=== PATIENT | male | born 1965 | race Caucasian/White ===

== ENCOUNTER → 2018-04-04 | Outpatient (CLI) | payer MEDICARE | END | disposition home or self-care (01) | LOC: RAH 10:14 | PROVIDERS: ATTEND Orthopaedic Surgery | DX: M19.012 Primary osteoarthritis, left shoulder (principal); M25.712 Osteophyte, left shoulder; M24.012 Loose body in left shoulder | CPT/HCPCS: 73200 ==

== ENCOUNTER 2018-05-21 15:00 | Observation (INO) | payer MEDICARE ==
[~2018-05-21] VITALS: Ht 203.2 cm; Wt 177.5 kg
[2018-07-04 08:27] VITALS: BP 162/74
[2018-07-04 08:27] LABS: BASOPHILS % (AUTO) 0.9 % (0.0-5.0); EOSINOPHILS % (AUTO) 4.6 % (0.0-8.0); HEMATOCRIT 26.3 % (42-54); MEAN CORPUSCULAR HEMOGLOBIN 27.2 pg (27.0-33.0); MEAN CORPUSCULAR HGB CONC 33.2 g/dL (32.0-36.0); MEAN CORPUSCULAR VOLUME 81.9 fL (79-99); MONOCYTES % (AUTO) 6.5 % (3.0-13.0); NUCLEATED RED BLOOD CELLS 0.2 % (0.0-0.19); PLATELET COUNT (AUTO) 187 K/uL (130-400); RED BLOOD CELL COUNT(AUTO) 3.21 MIL/uL (4.50-6.20); RED CELL DISTRIBUTION WIDTH 15.7 % (11.0-15.5); WHITE BLOOD COUNT (AUTO) 5.5 K/uL (4.8-10.8)
[2018-07-04 08:39] LABS: CREATININE 2.1 mg/dL (0.5-1.5)
[2018-07-04 08:42] LABS: PARTIAL THROMBOPLASTIN TIME 34.9 SEC (26.3-35.5); PROTHROMBIN TIME 10.5 SEC (9.6-11.6)
[2018-07-04 08:48] LABS: POTASSIUM 6.5 mmol/L (3.5-5.1)
--- NOTE | 2018-07-04 08:55 | NUR ---
LABS K+ 6.[address] ALBERTO, ORDERS RECEIVED TO REPEAT LEVEL AND IF CONTINUE TO BE HIGH PATIENT TO GO TO EMERGENCY ROOM .
[2018-07-04] MEDS: INSULIN HUMULIN R 100 UNIT/ML 3ML SQ SCH ×5 (11:30→20:56)
[2018-07-04] MEDS ORDERED: DEXTROSE 50%-WATER 50 ML DISP.SYRIN IV PRN (11:30)
[2018-07-04] MEDS ORDERED: GLUCAGON 1MG KIT 1 MG ML IM PRN (11:30)
[2018-07-04] MEDS ORDERED: LISI-617 PO (11:52)
[2018-07-04] MEDS ORDERED: NITR0.4T SL (11:52)
[2018-07-04] MEDS ORDERED: AMLO10TA7 PO (11:52)
[2018-07-04] MEDS ORDERED: ISOS60TA4 PO (11:52)
[2018-07-04] MEDS ORDERED: INSU100I3 SQ (11:52)
[2018-07-04] MEDS ORDERED: SIMV10TA6 PO (11:52)
[2018-07-04] MEDS ORDERED: CARV25TA PO (11:52)
[2018-07-04] MEDS ORDERED: TRAM50TA4 PO (11:52)
[2018-07-04] MEDS ORDERED: SENN8.6T32 PO (11:52)
[2018-07-04] MEDS ORDERED: OXYB5TAB10 PO (11:52)
[2018-07-04] MEDS ORDERED: METF500S7 PO (11:52)
[2018-07-04] MEDS ORDERED: ONDA4TAB10 PO (11:52)
[2018-07-04] MEDS ORDERED: INSU100V37 SQ (11:52)
[2018-07-04] MEDS ORDERED: GABA-531 PO (11:52)
[2018-07-04] MEDS ORDERED: HYDR-4154 PO (11:52)
[2018-07-04] MEDS ORDERED: FOLI1TAB15 PO (11:52)
[2018-07-04] MEDS ORDERED: ACET-66 PO (11:52)
[2018-07-04] MEDS ORDERED: ASPI-1197 PO (11:52)
[2018-07-04 11:53] LABS: HEMOGLOBIN A1C 7.3 % (4.0-6.0)
[2018-07-04] MEDS ORDERED: TRAMADOL HCL 50 MG TABLET PO PRN (12:15)
[2018-07-04] MEDS ORDERED: CALCIUM GLUCONATE 1 GM/10 ML VIAL IV SCH (12:15)
[2018-07-04] MEDS ORDERED: SENNOSIDES 8.6 MG TABLET PO PRN (12:15)
[2018-07-04] MEDS ORDERED: ONDANSETRON HCL 4 MG/2 ML VIAL IV PRN (12:15)
[2018-07-04] MEDS ORDERED: HYDRALAZINE HCL 20 MG/ML VIAL IV PRN ×2 (12:15→22:45)
[2018-07-04] MEDS ORDERED: ACETAMINOPHEN 325 MG TAB PO PRN ×2 (12:15)
[2018-07-04] MEDS ORDERED: DEXTROSE 50%-WATER 25 GM/50 ML VIAL IV SCH (12:15)
[2018-07-04] MEDS ORDERED: SODIUM CHLORIDE 0.9% IV SCH (12:30)
[2018-07-04] MEDS ORDERED: DEXTROSE 50%-WATER 50 ML DISP.SYRIN IV SCH (12:30)
[2018-07-04] MEDS ORDERED: CALCIUM GLUCONATE IV SCH (12:30)
[2018-07-04 12:38] VITALS: BP 153/80
[2018-07-04] MEDS: GABAPENTIN 300 MG CAPSULE PO SCH ×2 (13:06→20:43)
[2018-07-04] MEDS: HYDRALAZINE HCL 25 MG TABLET PO SCH ×2 (13:06→20:42)
[2018-07-04] MEDS: SODIUM POLYSTYRENE SULFONATE 15 GM/60 ML ML PO SCH (13:07)
[2018-07-04] MEDS: SODIUM CHLORIDE 0.9% 1000ML 1,000 ML IV SCH ×2 (13:09→22:24)
[2018-07-04] MEDS: INSULIN HUMULIN R 100 UNIT/ML 3ML IV SCH (13:11)
[2018-07-04 14:06] LABS: POTASSIUM 5.7 mmol/L (3.5-5.1)
[2018-07-04 16:00] VITALS: BP 167/86
[2018-07-04] MEDS ORDERED: SODIUM POLYSTYRENE SULFONATE 15 GM/60 ML ML PO SCH (17:45)
[2018-07-04] MEDS ORDERED: EPOETIN ALFA 10,000 UNIT/ML VIAL SQ SCH (17:45)
--- NOTE | 2018-07-04 19:42 | NUR ---
D/C PLAN CM spoke to pt regarding d/c planning. pt is ind. and lives at [facility] in [place]. Pt states she uses [facility] for MD visits and plans on utilizing their services when discharged from hospital. Pt states he has w/c and transfer board. Plan to return to previous setting once discharged. Pts shoulder surgery has been cancelled and now pending nephrology work up. No questions or concerns verbalized. CM to f/u Addendum: 07/04/18 at 1944 by KAYLI GIBBONS CM Amended: Links added.
[2018-07-04 20:01] VITALS: BP 170/93
[2018-07-04] MEDS: IRON SUCROSE COMPLEX 100 MG in SODIUM CHLORIDE 0.9% 50 ML IV SCH (20:42)
[2018-07-04] MEDS: FAMOTIDINE/PF 20 MG/2 ML VIAL IV SCH (20:42)
[2018-07-04] MEDS: OXYBUTYNIN CHLORIDE 5 MG TABLET PO SCH (20:42)
[2018-07-04] MEDS: CARVEDILOL 25 MG TABLET PO SCH (20:43)
[2018-07-04] MEDS ORDERED: COMPOUND IV MISC 1 EACH IVSOLN MISC PRN (21:00)
[2018-07-04] MEDS ORDERED: SIMVASTATIN 10 MG TABLET PO SCH (21:00)
[2018-07-04 23:26] VITALS: BP 160/70
[2018-07-05 04:00] VITALS: BP 166/82
[2018-07-05 05:07] LABS: BASOPHILS % (AUTO) 0.9 % (0.0-5.0); EOSINOPHILS % (AUTO) 4.5 % (0.0-8.0); HEMATOCRIT 25.2 % (42-54); LYMPHOCYTES % (AUTO) 22.6 % (21.0-51.0); MEAN CORPUSCULAR HEMOGLOBIN 26.7 pg (27.0-33.0); MEAN CORPUSCULAR HGB CONC 32.8 g/dL (32.0-36.0); MEAN CORPUSCULAR VOLUME 81.2 fL (79-99); MONOCYTES % (AUTO) 6.9 % (3.0-13.0); NEUTROPHILS % (AUTO) 65.1 % (40.0-77.0); PLATELET COUNT (AUTO) 184 K/uL (130-400); RED BLOOD CELL COUNT(AUTO) 3.11 MIL/uL (4.50-6.20); RED CELL DISTRIBUTION WIDTH 15.1 % (11.0-15.5); WHITE BLOOD COUNT (AUTO) 4.6 K/uL (4.8-10.8)
[2018-07-05 05:36] LABS: CREATININE 1.9 mg/dL (0.5-1.5); PHOSPHORUS 4.9 mg/dL (2.5-4.9); POTASSIUM 5.5 mmol/L (3.5-5.1); THYROID STIMULATING HORMONE 1.54 uIU/mL (0.36-3.74)
[2018-07-05 05:42] LABS: % IRON SATURATION 44.4 % (30-44)
[2018-07-05] MEDS: INSULIN HUMULIN R 100 UNIT/ML 3ML SQ SCH ×4 (06:34→17:36)
[2018-07-05] MEDS ORDERED: LACTATED RINGERS 1000ML 1,000 ML IV SCH (07:38)
[2018-07-05] MEDS ORDERED: SODIUM POLYSTYRENE SULFONATE 15 GM/60 ML ML PO SCH (07:45)
[2018-07-05 08:00] VITALS: BP 181/78
[2018-07-05] MEDS: GABAPENTIN 300 MG CAPSULE PO SCH ×2 (08:37→14:22)
[2018-07-05] MEDS: FAMOTIDINE/PF 20 MG/2 ML VIAL IV SCH (08:37)
[2018-07-05] MEDS: HYDRALAZINE HCL 25 MG TABLET PO SCH ×2 (08:38→14:22)
[2018-07-05] MEDS: OXYBUTYNIN CHLORIDE 5 MG TABLET PO SCH (08:38)
[2018-07-05] MEDS: CARVEDILOL 25 MG TABLET PO SCH (08:38)
[2018-07-05] MEDS: IRON SUCROSE COMPLEX 100 MG in SODIUM CHLORIDE 0.9% 50 ML IV SCH (08:39)
[2018-07-05] MEDS ORDERED: FOLIC ACID/VITAMIN B COMP W-C 1 MG CAPSULE PO SCH (09:00)
[2018-07-05] MEDS ORDERED: ISOSORBIDE MONO 60 MG TAB.SR PO SCH (09:00)
[2018-07-05] MEDS ORDERED: AMLODIPINE BESYLATE 5 MG TAB PO SCH (09:00)
[2018-07-05 11:00] VITALS: BP 181/87
[2018-07-05] MEDS: INSULIN HUMULIN R 100 UNIT/ML 3ML IV SCH (12:15)
[2018-07-05] MEDS: SODIUM POLYSTYRENE SULFONATE 15 GM/60 ML ML PO SCH (12:15)
[2018-07-05 12:23] LABS: CREATININE 1.8 mg/dL (0.5-1.5); POTASSIUM 4.9 mmol/L (3.5-5.1)
--- NOTE | 2018-07-05 14:41 | NUR ---
DC PLAN PATIENT OKAY TO DC. PER PATIENT WANTS US TO CALL [facility]. CALLED [phone]. SPOKE TO PRIYA. SET UP TRANSPORT FOR 530 FROM HOSPITAL TO HOME REF NUMBER [id number]. Addendum: 07/05/18 at 1445 by EM MINOR RN CM Amended: Links added.
[2018-07-05 16:00] VITALS: BP 173/83
--- NOTE | 2018-07-05 17:29 | NUR ---
Nutrition Intervention: Nutrition consult for Diabetic Non Renal Dialysis diet education. Pt. admitted with Dx of Osteoarthritis Left Shoulder. Pt. on Renal Non Dialysis diet with good p.o. intake, as per pt. Labs reviewed(BUN 40, Creat 1.8, GFR 42, HgbA1c 7.3%). LBM: 07/04/18. SR-15, left stump/gen. scrotum redness. BMI: 48.3, morbidly obese. Pt. educated on Diabetic Renal Non Dialysis diet and provided with education material. Pt. verbalized understanding. Recommendations: 1) Rec. 75gm CCD Renal Non Dialysis diet. 2) Diabetic Renal Non dialysis diet education given to patient. 3) Continue to monitor pt's nutritional status. 4) Consult RD as nutrition concerns arise. Addendum: 07/05/18 at [address] Amended: Links added.
--- NOTE | 2018-07-05 18:20 | NUR ---
DISCHARGE DISCHARGE TEACHING DONE WITH PATIENT USING TEACHBACK METHOD, VERBALIZED UNDERSTANDING. NO NOTED SOB OR DISTRESS. NO NEW PRESCRIPTIONS. PT AWARE OF NEED TO SET UP APPOINTMENT WITH PCP AND KIDNEY SPECIALIST. IV REMOVED, CATH TIP INTACT. PENDING TO BE TRANSFERRED OUT VIA PRIVATE VEHICLE.
[2018-07-05] MEDS ORDERED: ASPIRIN 81MG TAB.CHEW PO SCH (21:00)
== END 2018-07-05 18:42 | disposition home or self-care (01) ==
LOC: EDSTATUS 05-22 15:00 → EDUNIT# 05-22 15:00 → INTOOBSV 07-04 07:33 → DAHIP 07-04 07:33 → 4AH 07-04 10:13
PROVIDERS: ADMIT Internal Medicine; ATTEND Internal Medicine
DX: E87.5 Hyperkalemia (principal); I12.9 Hypertensive chronic kidney disease with stage 1 through stage 4 chronic kidney disease, or unspecified chronic kidney disease; D63.1 Anemia in chronic kidney disease; N18.9 Chronic kidney disease, unspecified; N17.9 Acute kidney failure, unspecified; E11.21 Type 2 diabetes mellitus with diabetic nephropathy; E11.22 Type 2 diabetes mellitus with diabetic chronic kidney disease; E11.40 Type 2 diabetes mellitus with diabetic neuropathy, unspecified; E11.51 Type 2 diabetes mellitus with diabetic peripheral angiopathy without gangrene; E66.01 Morbid (severe) obesity due to excess calories; E78.5 Hyperlipidemia, unspecified; K21.9 Gastro-esophageal reflux disease without esophagitis; M19.012 Primary osteoarthritis, left shoulder; G89.29 Other chronic pain; N32.81 Overactive bladder; T46.4X5A Adverse effect of angiotensin-converting-enzyme inhibitors, initial encounter; Y92.89 Other specified places as the place of occurrence of the external cause; Z53.9 Procedure and treatment not carried out, unspecified reason; Z68.44 Body mass index [BMI] 60.0-69.9, adult; Z89.519 Acquired absence of unspecified leg below knee; Z91.19 Patient's noncompliance with other medical treatment and regimen; Z96.619 Presence of unspecified artificial shoulder joint; Z88.8 Allergy status to other drugs, medicaments and biological substances; Z88.1 Allergy status to other antibiotic agents
CPT/HCPCS: 36415 ×2; 76770; 80048 ×4; 82728; 82948 ×6; 83036; 83540; 83550; 83735; 83880; 84100; 84132 ×2; 84443; 84550; 85025 ×2; 85610; 85730; 96365; 96366; 96372 ×3; 96375; 96376; G0378 ×36; J0610 ×2; J0885; J1756; J1815 ×3; J3490 ×2; J7030; J7120 ×2; J7070